=== PATIENT | male | born 1975 | race Caucasian/White ===

== ENCOUNTER 2017-09-23 00:31 | Emergency (ER) | payer OTHER, MEDICAID, SELFPAY ==
[2017-09-23 00:34] VITALS: BP 139/79; PULSE 84; RESP 13; O2SAT 97; BMI 33.9
[2017-09-23 00:54] VITALS: BP 139/79; PULSE 71; RESP 12; O2SAT 97
--- NOTE | 2017-09-23 01:24 | ED_ITS ---
HPI - Arrhythmia/Palpitations General Chief Complaint: Arrhythmia/Palpitations Stated Complaint: Palpitations Time Seen by Provider: 09/23/17 01:03 Source: patient Mode of arrival: EMS Limitations: no limitations History of Present Illness HPI narrative: 42-year-old male here for evaluation of palpitations. Patient states that at approximately midnight he went to bed and was woken shortly afterwards with feeling like his heart was beating fast. He states that he felt lightheaded at that time. Did not pass out. Did not have any chest pain. he states that he walked down the [place] to get his and told her to call 911. the he states that he has been under lot of stress recently. Has never had anything like this before. No recent travel. No lower extremity swelling. No cough. No nausea vomiting. Patient states that the symptoms lasted approximately 1 min. States that they were not there when EMS arrived. He states that he did take of Suboxone this morning because of ?body aches ? Review of Systems Constitutional Denies chills, Denies fever(s), Denies lethargy and Denies weakness Cardiovascular Denies chest pain, Denies syncope, Reports rapid heart rate, Denies edema, Reports irregular heart rhythm, Reports lightheadedness, Reports palpitations and Denies dyspnea on exertion Respiratory Denies cough, Denies dyspnea on exertion and Denies wheezing Gastrointestinal Gastrointestinal: Denies abdominal pain, Denies change in bowel habits, Denies diarrhea, Denies nausea and Denies vomiting Musculoskeletal Comments: Body aches that are not new Integumentary/Breasts Denies pruritus, Denies erythema, Denies rash and Denies wounds Neurologic Denies syncope and Denies weakness Psychiatric Comments: Anxiety Endocrine Reports palpitations Hematologic/Lymphatic Denies easy bruising Allergic/Immunologic Denies wheezing [facility] Social History Smoking Status: Current some day smoker Exam Initial Vital Signs Initial Vital Signs: Vital Signs Pulse Rate 84 09/23/17 00:34 Respiratory Rate 13 09/23/17 00:34 Blood Pressure 139/79 H 09/23/17 00:34 Pulse Oximetry 97 09/23/17 00:34 Chest Chest: normal inspection of the chest Resp Effort & Inspection: normal respiratory effort, able to speak in complete sentences, no respiratory distress and no use of accessory muscles Auscultation: clear to auscultation bilaterally, no rales, no rhonchi and no wheezes Cardio Rate: regular rate Rhythm: regular rhythm Heart Sounds: no click, no gallops, no murmurs and no rubs Pulses: normal peripheral pulses GI Inspection: non-distended Palpation: soft, no hepatosplenomegaly, No guarding, No pulsatile mass and No tender Auscultation: normal bowel sounds Skin General: no rashes or lesions noted, No jaundice and No petechiae Extrem General: full ROM, no clubbing, cyanosis or edema, no pedal edema and no calf tenderness Course Orders Ordered: ED Orders 09/23/17 00:26 EKG-12 Lead Stat Vital Signs - 8 hr 09/23/17 00:34 09/23/17 00:54 09/23/17 01:33 Pulse Rate 84 71 80 Respiratory Rate 13 12 12 Blood Pressure 139/79 H 125/75 H Blood Pressure [Left Arm] 139/79 H Pulse Oximetry 97 97 95 MDM - Arrhythmia/Palpitations ECG Data Attestation: I personally reviewed and interpreted this ECG as follows: Prior ECG tracings: not available for review Interpretation: EKG time 0035 hr Sinus rhythm Normal axis Normal intervals Normal QRS No ST T wave changes MDM Narrative Medical decision making narrative: EKG transmitted by EMS prior to arrival shows normal sinus rhythm with a heart rate of 91. EKG here also unremarkable. Patient was not having symptoms at the time though. Patient is PERC negative. Had a long discussion with the patient and family was at bedside regarding his symptoms. Informed him that unless we are monitoring him when he is having the symptoms it is difficult to say what his heart was doing at the time. Will hold on further testing for now. Discussed the symptoms with the patient. He was given return precautions. Informed him that he needed to find a primary doctor in the area and discuss with this primary doctor the indications for Holter monitor. He expressed understanding and agreement with plan for Discharge Plan Departure Patient Disposition: Home, Self-Care Clinical Impression: Palpitations, Anxiety Discharge Date/Time: 09/23/17 01:34 Interventions: ED Discharge Assessment Last Done: 09/23/17 01:33 Instructions: DI for Palpitations Activity Restrictions/Additional Instructions: Recommend that you may contact with the primary care doctor to continue your treatment. Return to the emergency department for any new symptoms, palpitations associated with chest pain or shortness of breath or passing out. Recommend that you consider quitting the nicotine. Return to the emergency department for any other concerning symptoms
[2017-09-23 01:33] VITALS: BP 125/75; PULSE 80; RESP 12; O2SAT 95
== END 2017-09-23 01:34 | disposition home or self-care (01) ==
PROVIDERS: Emergency Provider Emergency Medicine
DX: R00.2 Palpitations (principal); F41.9 Anxiety disorder, unspecified
CPT/HCPCS: 36591; 93005; 99283

== ENCOUNTER → 2017-10-02 11:15 | Outpatient (CLI) | payer OTHER, MEDICAID, SELFPAY ==
--- NOTE | 2017-10-02 11:19 | DI.RAD.S_ITS ---
PROCEDURE: XR CHEST 2V INDICATIONS: Chest pain TECHNIQUE: 2 views of the chest were acquired. COMPARISON: None. FINDINGS: Surgical changes and devices: None. Lungs and pleura: No pleural effusions or pneumothorax. Lungs are clear. Mediastinum: Mediastinal contours are normal. Heart size is normal. Bones and chest wall: No suspicious bony abnormalities. Soft tissues appear unremarkable. IMPRESSION: Normal chest Dictated by: Jose Faith M.D. on 10/02/2017 at 11:48 Approved by: Jose Faith M.D. on 10/02/2017 at 11:48
--- NOTE | 2017-10-02 11:19 | DI.RAD.S_ITS ---
PROCEDURE: FL BARIUM SWALLOW INDICATIONS: Chest pain COMPARISON: None. FINDINGS: Function: There is normal esophageal peristalsis. No elicited gastroesophageal reflux. There is normal transit of a calibrated barium tablet through the esophagus into the stomach. Morphology: Air-contrast images demonstrate normal mucosal morphology. Single contrast views show no esophageal strictures, extrinsic mass effects, or diverticula. Limited images of the stomach demonstrate normal appearance. IMPRESSION: Normal esophagram Dictated by: Jose Faith M.D. on 10/02/2017 at 13:31 Approved by: Jose Faith M.D. on 10/02/2017 at 13:33
[2017-10-02 12:55] LABS: Alanine Aminotransferase 38 IU/L (21-72); Albumin 4.6 g/dL (3.5-5.0); Albumin Globulin Ratio 1.3 (1.0-2.8); Alkaline Phosphatase 74 U/L (38-126); Aspartate Aminotransferase 30 IU/L (17-59); BUN Creatinine Ratio 16.3 (6-22); Bilirubin Total 0.8 mg/dL (0.2-1.3); Blood Urea Nitrogen 13 mg/dL (9-20); Calcium 9.3 mg/dL (8.4-10.2); Carbon Dioxide 32 mmol/L (22-32); Chloride 100 mmol/L (98-107); Cholesterol 160 mg/dL (140-199); Estimated Glomerular Filt Rate > 60.0 mL/min (>60); Globulin 3.5 g/dL (1.7-4.1); Glucose 84 mg/dL (70-100); HDL Cholesterol 51 mg/dL (40-60); HEMOLYSIS < 15 (0-50); LDL Cholesterol Calculated 93 mg/dL (<100); Potassium 4.2 mmol/L (3.4-5.1); Sodium 142 mmol/L (137-145); Total Protein 8.1 g/dL (6.3-8.2); Triglycerides 81 mg/dL (35-150)
[2017-10-02 13:26] LABS: Thyroid Stimulating Hormone 3.95 uIU/mL (0.47-4.68)
== END ==
PROVIDERS: Visit Provider Physician Assistant
DX: R07.9 Chest pain, unspecified (principal); R00.2 Palpitations; K21.9 Gastro-esophageal reflux disease without esophagitis; R53.83 Other fatigue
CPT/HCPCS: 36415; 71046; 74220; 80053; 80061; 84443